=== PATIENT | female | born 1955 | race Caucasian/White ===

== ENCOUNTER → 2017-06-26 | Outpatient (CLI) | payer OTHER | LOC: FIMAGING 13:12 | PROVIDERS: ATTEND Family Medicine | DX: Z13.820 Encounter for screening for osteoporosis (principal); M81.0 Age-related osteoporosis without current pathological fracture | CPT/HCPCS: G0202 ==

== ENCOUNTER 2018-10-01 16:09 | Observation (INO) | payer OTHER ==
[2018-10-01] MEDS ORDERED: NS 1,000 ML IV ONE ×2 (16:50→19:09)
--- NOTE | 2018-10-01 16:52 | EDPHY ---
H & P Stated Complaint: LOWER L ABD PAIN/FEVER WITH HX DIVERTICULITIS Source: Patient, RN/MD Exam Limitations: No limitations - Personal History Current Tetanus Diphtheria and Acellular Pertussis (TDAP): Yes - Medical/Surgical History Hx Asthma: No Hx Chronic Respiratory Disease: No Hx Diabetes: No Hx Cardiac Disease: No Hx Renal Disease: No Hx Cirrhosis: No Hx Alcoholism: No Hx HIV/AIDS: No Hx Splenectomy or Spleen Trauma: No Other PMH: Hysterectomy, depression, rheumatoid arthritis, foot surgery, cholesterol DIVERTICULITIS - Social History Smoking Status: Never smoked Time Seen by Provider: 10/01/18 16:15 HPI/ROS: HPI: This is a 62-year-old female who presents with Chief Complaint: LOWER L ABD PAIN/FEVER WITH HX DIVERTICULITIS Location: Left lower quadrant Quality: Pain Duration: 1 week Signs and Symptoms: no fever, no nausea, no vomiting, no hematemesis, no blood in stool, no abdominal bloating, no diarrhea, no back pain, no urinary symptoms , no vaginal bleeding/discharge, no indigestion, no chest pain, no shortness of breath Timing: Acute, worsening Severity: Moderate to severe Context: Patient has a history of diverticulitis, last colonoscopy 5-10 years ago, presents with left lower quadrant pain that has been waxing waning over the last week. She finally had a bowel movement x3 yesterday. Yesterday evening the pain in left lower quadrant was so severe that it woke her up in the middle the night. She describes as severe, constant, nonradiating in nature. This afternoon she has developed some discomfort in the right lower quadrant as well. She reports decreased appetite. Denies fever, nausea, vomiting, diarrhea, urinary symptoms. Patient is postmenopausal. Patient called primary care provider who urged her to go to the emergency room to obtain CT imaging. Patient reports her pain to be 2/10 currently when she is lying still. Modifying Factors: Diverticular diet Comment: ROS: A comprehensive 10 system review of systems is otherwise negative aside from elements mentioned in the history of present illness. MEDICAL/SURGICAL/SOCIAL HISTORY: Medical/Surgical history: Hysterectomy, depression, rheumatoid arthritis, foot surgery, cholesterol, DIVERTICULITIS Social history: Never smoked. . Family history noncontributory. CONSTITUTIONAL: Nontoxic-appearing, polite and cooperative, elderly white female who appears younger than stated age, awake and alert, no obvious distress HEENT: Atraumatic and normocephalic, PERRL, EOMI. Nares patent; no rhinorrhea; no nasal mucosal edema. Tympanic membranes clear. Oropharynx clear, no exudate and moist pink mucosa. Airway patent. No lymphadenopathy. No meningismus. Cardiovascular: Normal S1/S2, regular rate, regular rhythm, without murmur rub or gallop. PULMONARY/CHEST: Symmetrical and nontender. Clear to auscultation bilaterally. Good air movement. No accessory muscle usage. ABDOMEN: Soft, nondistended, moderate left lower quadrant tenderness, mild right lower quadrant tenderness, no rebound, + guarding, no peritoneal signs, no masses or organomegaly. No CVAT. Bowel sounds hypoactive x4. EXTREMITIES: 2/2 pulses, strength 5/5, no deformities, no clubbing, no cyanosis or edema. NEUROLOGICAL: no focal neuro deficits. GCS 15. SKIN: Warm and dry, no erythema. no rash. Good capillary refill. (Maria Luisa Pickett) Constitutional: Initial Vital Signs Temperature (C) 37.5 C 10/01/18 16:24 Heart Rate 86 10/01/18 16:24 Respiratory Rate 18 10/01/18 16:24 Blood Pressure 125/79 H 10/01/18 16:24 O2 Sat (%) 95 10/01/18 16:24 O2 Delivery Mode Room Air Allergies/Adverse Reactions: codeine Allergy (Verified 10/01/18 19:18) morphine Allergy (Verified 10/01/18 19:18) Morpholine Analogues Allergy (Verified 10/01/18 19:18) penicillin V potassium [From Pen-Vee K] Allergy (Verified 10/01/18 16:22) PEN Allergy (Uncoded 03/15/14 01:14) Home Medications: Medication Instructions Recorded Avorastatin 12/25/13 Celexa 12/25/13 Citalopram 10/01/18 Oxybutynin 10/01/18 Medical Decision Making - Diagnostics Imaging Results: Imaging Impressions Abdomen CT 10/01/18 16:50 Impression: 1. Moderate diverticulitis of the mid sigmoid colon left lower quadrant without peridiverticular abscess or free air. Consider sigmoidoscopy after treatment to confirm that there is no underlying mass. 2. Probable hemangioma right lobe liver between the anterior and posterior segments. Consider follow-up ultrasound in 6 months to confirm stability and benign features. 3. Mildly prominent fluid-filled small bowel in the left lower abdomen adjacent to the diverticulitis that probably represents reactive ileus. Findings discussed with Maria Luisa Pickett PAC at 18:06 hour, 10/01/2018. ED Course/Re-evaluation: Vital signs reviewed and stable upon arrival. IV access, laboratory studies, urinalysis, CT abdomen and pelvis scan ordered Given 1 L normal saline. Patient has politely declined any antiemetics or pain medications at this time. 1733: Labs reviewed. WBC 10 K with left shift, sodium 134, creatinine 0.7. No signs of anemia/platelet dysfunction/KAYDEN/elevated LFTs/electrolyte imbalance/ pancreatitis. 1830: Called by radiologist that CT abdomen pelvis scan shows sigmoid diverticulitis with no abscess but does show LS and small as well as hemangioma in the right lower lobe that needs repeat ultrasound. Patient has an allergy to penicillin and does not want to take fluoroquinolone as a family member had severe tendinopathy as a reaction ED decision to consult attending who advises to give IV Invanz and to admit patient for further care. IV fentanyl 50 mcg and IV Zofran given as well. ED decision to consult hospitalist for admission. Spoke with hospitalist, Dr. Poole, who kindly agrees to admit patient and provide further care for diverticulitis, ileus, need for bowel rest and IV fluids This patient was seen under the supervision of my secondary supervising physician. I evaluated care for this patient with attending. Discussed this patient with Dr. Leon who did see the patient. (Maria Luisa Pickett) I did not see this patient while she was in the emergency department. However her care was discussed with the PA while the patient was in the department. I agree with treatment plan and management (Rickey Leon) Differential Diagnosis: Abdominal pain including but not limited to appendicitis, cholecystitis, gastritis and urinary tract infection. (Maria Luisa Pickett) - Data Points Laboratory Results: Laboratory Results 10/01/18 16:55 10/01/18 16:55 10/01/18 10/01/18 16:55 16:55 WBC 9.89 10^3/uL H 10^3/uL (3.80-9.50) RBC 4.20 10^6/uL 10^6/uL (4.18-5.33) Hgb 13.1 g/dL g/dL (12.6-16.3) Hct 39.4 % % (38.0-47.0) MCV 93.8 fL fL (81.5-99.8) MCH 31.2 pg pg (27.9-34.1) MCHC 33.2 g/dL g/dL (32.4-36.7) RDW 13.0 % % (11.5-15.2) Plt Count 256 10^3/uL 10^3/uL (150-400) MPV 10.0 fL fL (8.7-11.7) Neut % (Auto) 80.5 % H % (39.3-74.2) Lymph % (Auto) 11.1 % L % (15.0-45.0) [place] % (Auto) 7.5 % % (4.5-13.0) Eos % (Auto) 0.2 % L % (0.6-7.6) Baso % (Auto) 0.3 % % (0.3-1.7) Nucleat RBC Rel Count 0.0 % % (0.0-0.2) Absolute Neuts (auto) 7.96 10^3/uL H 10^3/uL (1.70-6.50) Absolute Lymphs (auto) 1.10 10^3/uL 10^3/uL (1.00-3.00) Absolute Monos (auto) 0.74 10^3/uL 10^3/uL (0.30-0.80) Absolute Eos (auto) 0.02 10^3/uL L 10^3/uL (0.03-0.40) Absolute Basos (auto) 0.03 10^3/uL 10^3/uL (0.02-0.10) Absolute Nucleated RBC 0.00 10^3/uL 10^3/uL (0-0.01) Immature Gran % 0.4 % % (0.0-1.1) Immature Gran # 0.04 10^3/uL 10^3/uL (0.00-0.10) Sodium 134 mEq/L L mEq/L (135-145) Potassium 3.6 mEq/L mEq/L (3.5-5.2) Chloride 107 mEq/L mEq/L (97-110) Carbon Dioxide 23 mEq/l mEq/l (22-31) Anion Gap 4 mEq/L L mEq/L (6-14) BUN 8 mg/dL mg/dL (7-23) Creatinine 0.7 mg/dL mg/dL (0.6-1.0) Estimated GFR > 60 Glucose 111 mg/dL H mg/dL (70-100) Calcium 9.7 mg/dL mg/dL (8.5-10.4) Total Bilirubin 0.7 mg/dL mg/dL (0.1-1.4) Conjugated Bilirubin 0.2 mg/dL mg/dL (0.0-0.5) Unconjugated Bilirubin 0.5 mg/dL mg/dL (0.0-1.1) AST 18 IU/L IU/L (14-46) ALT 24 IU/L IU/L (9-52) Alkaline Phosphatase 73 IU/L IU/L (38-126) Total Protein 6.8 g/dL g/dL (6.3-8.2) Albumin 4.0 g/dL g/dL (3.5-5.0) Lipase 37 IU/L IU/L (23-300) Medications Given: Discontinued Medications Fentanyl (Sublimaze) 50 mcg IVP EDNOW ONE Stop: 10/01/18 19:21 Last Admin: 10/01/18 19:23 Dose: 50 mcg Sodium Chloride (Ns) 1,000 mls @ 0 mls/hr IV EDNOW ONE; Wide Open PRN Reason: Protocol Stop: 10/01/18 16:51 Last Admin: 10/01/18 17:10 Dose: 1,000 mls Ertapenem 1 gm/ Sodium (Chloride) 100 mls @ 200 mls/hr IV EDNOW ONE PRN Reason: Protocol Stop: 10/01/18 19:00 Last Admin: 10/01/18 18:55 Dose: 100 mls Sodium Chloride (Ns) 1,000 mls @ 0 mls/hr IV EDNOW ONE; Wide Open PRN Reason: Protocol Stop: 10/01/18 19:10 Last Admin: 10/01/18 19:17 Dose: 1,000 mls Morphine Sulfate (Morphine) 2 mg IVP EDNOW ONE Stop: 10/01/18 19:10 Last Admin: 10/01/18 19:24 Dose: Not Given Ondansetron HCl (Zofran) 4 mg IVP EDNOW ONE Stop: 10/01/18 19:10 Last Admin: 10/01/18 19:21 Dose: 4 mg Departure - Departure Disposition: [facility] Acute Clinical Impression: Diverticulitis of sigmoid colon, Ileus Condition: Fair
[2018-10-01 17:14] LABS: PLATELET COUNT 256 10^3/uL (150-400)
[2018-10-01] MEDS ORDERED: IOPAMIDOL (ISOVUE 370) 100 ML BTL IV ONE (17:30)
[2018-10-01] MEDS ORDERED: ERTAPENEM 1 GM in NS 100 ML IV ONE (18:31)
[2018-10-01] MEDS ORDERED: ONDANSETRON 4 MG/2 ML VIAL IVP ONE (19:09)
[2018-10-01] MEDS ORDERED: fentaNYL 100 MCG/2 ML INJ IVP ONE (19:20)
[2018-10-01] MEDS ORDERED: fentaNYL 100 MCG/2 ML INJ ONE (19:21)
[2018-10-01] MEDS: NS 1,000 ML IV SCH (21:20)
[2018-10-01] MEDS ORDERED: ONDANSETRON 4 MG/2 ML VIAL IVP PRN (21:52)
[2018-10-01] MEDS ORDERED: LORazepam 0.5 MG TAB PO PRN (21:52)
[2018-10-01] MEDS ORDERED: ACETAMINOPHEN 325 MG TAB PO PRN (21:52)
[2018-10-01] MEDS ORDERED: ONDANSETRON DISINTEGRATING 4 MG TAB PO PRN (21:52)
[2018-10-01] MEDS ORDERED: fentaNYL 100 MCG/2 ML INJ IVP PRN (22:35)
--- NOTE | 2018-10-01 23:19 | GHP ---
DATE OF ADMISSION: 10/01/2018 SOURCE: The patient provides history, appears reliable. EMR was reviewed and case discussed with [facility] hospitalist. CHIEF COMPLAINT: Left lower quadrant abdominal pain. HISTORY OF PRESENT ILLNESS: This is a very pleasant 62-year-old female with past medical history sig nificant for diverticulitis, depression, rheumatoid arthritis, hyperlipidemia, who presents to the em ergency department today with complaints of 1-week history of left lower quadrant abdominal pain. Th e patient reports increasing cramping. Pain increased in severity and woke her up from sleep. The p atsally has been experiencing symptoms for approximately a week. However, she has had diverticulitis in the past and usually tries to self-treat with dietary changes. Yesterday, the patient reports sia t she had 3 bowel movements after having been constipated for several days. She denies any melena or hematochezia. She is taking a [id number] supplement which she reports changes her bowels to g reen, but she denies any tarry black stools. The patient usually will try to self-treat for as long as she is afebrile. However, today at work she measured a temperature of 100.3. She has had decreas ed appetite. No nausea, vomiting. No fatigue. Hemangioma incidentally noted on patient's CT scan of the abdomen with recommendations for 6-month fo llowup, which will be discussed with the patient. REVIEW OF SYSTEMS: Ten systems reviewed, negative except as noted above. ALLERGIES: Codeine, morphine, and penicillin, which the patient reports she developed a rash in chil dhood on her feet, but no anaphylaxis. The patient declined to have a fluoroquinolone for her divert iculitis, as she has a sister who has had tendinopathy complications from them. HOME MEDICATIONS: Vitamin E, omega-3 fish oil, vitamin D3, multivitamin, turmeric, coQ10, biotin, ga rlic, glucosamine, aspirin 81 mg p.o. daily, oxybutynin 50 mg p.o. daily, Celexa, atorvastatin. PAST MEDICAL HISTORY: Significant for depression, rheumatoid arthritis, hyperlipidemia, overactive b ladder, history of diverticulitis remotely several years ago. PAST SURGICAL HISTORY: Significant for hysterectomy, bilateral bunionectomy, colonoscopy 5-10 years ago, which she reports was normal. FAMILY HISTORY: Sister with diverticulitis. SOCIAL HISTORY: The patient reports that she drinks 1-2 glasses or more of wine daily. No tobacco o r illicit drugs. No marijuana. She is and lives with her . She is a psychologist an d employed. CODE STATUS: Full. PHYSICAL EXAMINATION: VITAL SIGNS: Upon arrival to the ED, blood pressure is 125/79, heart rate is 86, respiratory rate 18, O2 saturation 95% on room air, temperature 37.5. Current vitals: Blood pre ssure is 103/63, heart rate 70, respiratory rate 16, O2 saturation 94% on room air with temperature 3 6.8. GENERAL: No acute distress. Very pleasant, thin adult female who is sitting up in bed. Her h usband is at bedside. HEAD: Normocephalic and atraumatic. EYES: Extraocular muscles are grossly i ntact. Pupils equal, round, and reactive to light bilaterally and symmetric. No scleral icterus or conjunctival injection. The patient has glasses in place. ENT: Mucous membranes appear moist. No oropharyngeal erythema or exudates. Dentition intact. NECK: Supple. Trachea midline. CV: Regula r rate and rhythm. No murmurs, rubs, or gallops appreciated. No chest wall tenderness to palpation. RESPIRATORY: Lungs are clear to auscultation bilaterally. No wheezes, rales, or rhonchi appreciat ed. ABDOMEN: Hypoactive bowel sounds. The patient with some minimal tenderness to the left lower q uadrant, but no rebound, guarding, or masses appreciated. Soft to palpation. : No suprapubic ten derness to palpation. No Barbosa catheter in place. EXTREMITIES: No cyanosis, clubbing, or edema. P atient with 2+ pedal pulses bilaterally and symmetric. MUSCULOSKELETAL: Strength grossly normal. T he patient is able to sit up independently. Moves all extremities while lying in bed. NEURO: Gross ly nonfocal. Moves extremities as noted above. PSYCH: The patient is pleasant and cooperative. Th ought process, content, and questions are all appropriate. The patient is pleasant and cooperative. LABORATORY STUDIES: WBC 9.89, H and H are 13.1 and 39.4, MCV of 93.8, platelet count is 256, neutrop hil percent is 80.5. Sodium is 134, potassium 3.4, chloride 107, CO2 is 23, anion gap of 4, BUN 8, c reatinine 0.7. GFR greater than 60, glucose 111, calcium 9.7, total bilirubin 0.7, ALT is 24, AST is 18, alkaline phosphatase 73, total protein 6.8, albumin 4.0, lipase 37. CT abdomen and pelvis: Moderate diverticulitis of the mid sigmoid colon, left lower quadrant without peridiverticular abscess or free air. Consider sigmoidoscopy after treatment to confirm there is no underlying mass. Probable hemangioma right lobe of the liver between anterior and posterior segment s. Consider followup ultrasound in 6 months to confirm stability and benign features. Mildly promin ent fluid-filled small bowel in the left lower abdomen adjacent to the diverticulitis that probably r epresents a reactive ileus. ASSESSMENT AND PLAN: A very pleasant 62-year-old female with a history of rheumatoid arthritis, depr ession, hyperlipidemia, overactive bladder and diverticulitis, who presents to the emergency [facility] today with 1-week history of left lower quadrant abdominal pain. 1. Diverticulitis in the sigmoid colon. The patient has not had a colonoscopy or sigmoidoscopy in 5 -10 years. She reports that this was previously noted to be negative. She has had an episode of div erticulitis previously. The patient has been started on Invanz due to decline for fluoroquinolones i n the setting of a family history with tendinopathy after Levaquin. The patient will continue on ert apenem and consider transition to oral medications tomorrow if the patient's symptoms are significant ly improved and she is tolerating a full diet. 2. Abdominal pain. The patient currently reports that she is a lot more comfortable and not in need of any medications. She did receive some fentanyl in the emergency department. She has a listed al marin for codeine and morphine. Will leave Tylenol and p.r.n. fentanyl available with the patient on pulse oximetry if she continues to receive IV medications. 3. Chronic medical issues. 4. Depression. Resume citalopram. 5. Rheumatoid arthritis. The patient reports that she manages with glucosamine. She has not been o n methotrexate in some time. 6. Hyperlipidemia. Resume atorvastatin at discharge. 7. Fluid, electrolyte, and nutrition. IV fluids overnight for additional hydration. The patient do es have a minimal decline in her sodium, likely due to hypovolemia. Electrolyte monitoring and repla cement if needed, and patient will be started on clears. She does report that she is passing flatus, has not had a bowel movement today, but had 3 yesterday. If the patient is able to tolerate without additional symptoms in the setting of a reactive ileus in the small bowel, then will plan to advance her diet to regular in the morning and assess for potential discharge home. 8. Prophylaxis. Sequential compression devices. Lovenox if patient should stay additional day. Ot herwise, encourage mobilization. 9. Code status is full. DISPOSITION: Patient admitted to observation status on the Med/Surg floor, as her symptoms appear to be improving. We will advance diet and see how she tolerates and transition to oral antibiotics as noted above. /[id number]/MODL
[2018-10-02] MEDS: NS 1,000 ML IV SCH (04:45)
[2018-10-02 04:56] LABS: PLATELET COUNT 201 10^3/uL (150-400)
[2018-10-02 08:50] VITALS: BP 93/58
[2018-10-02] MEDS ORDERED: ENOXAPARIN 40 MG/0.4 ML SYR SC SCH (09:00)
--- NOTE | 2018-10-02 11:01 | ASMTLACE ---
LACE Length of stay for Answers: Less than 1 day current admission Acuity / Level of Answers: Yes Care: Did the patient have an inpatient admission? Comorbidities - select Answers: Other Notes: Diverticulitis; HLD all that apply # of Emergency department Answers: 1-2 visits in the last 6 months Social determinants Answers: Mental health diagnosis (anxiety, depression, pers onality disorders, etc.) Score: 8 Date Signed: 10/02/2018 11:01 AM Electronically Signed By:Chayo Gibson RN
--- NOTE | 2018-10-02 11:03 | ASMTDCNOTE ---
Case Management Discharge Discharge Order Complete? Answers: Yes Transportation Arranged Answers: Other Family Notified Answers: Yes Discharge Comments Notes: Patient admitted via ED under obs. Medically clear for dc to home. No needs. Date Signed: 10/02/2018 11:02 AM Electronically Signed By:Chayo Gibson RN
[2018-10-02] MEDS ORDERED: ERTAPENEM 1 GM in NS 100 ML IV SCH (18:00)
--- NOTE | 2018-10-02 19:27 | PDDCSUM ---
Discharge Summary Discharge Summary: Date of Admission: 10/01/2018 Date of Discharge: 10/02/2018 Discharge Diagnoses: Acute uncomplicated diverticulitis, recurrent Ileus, resolved Probable hemangioma of liver Constipation Admission Diagnoses: Diverticulitis of the sigmoid colon Abdominal pain Chronic medical issues Depression Rheumatoid arthritis Hyperlipidemia Dehydration Hyponatremia Consultants: None. Hospital Course: The patient is a 62-year-old female who presented with 1 week increasingly worsening left lower quadrant abdominal pain. She was found to have acute uncomplicated diverticulitis on CT scan. She admitted that she recently had constipation She was admitted for observation received IV fluids, IV Invanz, and fluids. She greatly improved overnight and was passing gas and tolerating clear liquids the next day. She was discharged home with prescriptions for antibiotics. She was recommended to consider getting elective colon surgery for recurrent diverticulitis. She was also given a flu shot before she went home. Physical Exam: General: The patient is a female who is alert and in no acute distress. HEENT: normocephalic, extraocular movements intact, conjunctivae clear, no lesions on face. Mucous membranes moist. Neck: trachea midline, no visible masses, no external lesions. Abd: soft and nondistended. Musculoskeletal: Normal muscle tone and bulk. Neuro: cranial nerves II - XII grossly intact. Intact gross motor and sensory function. Psych: appropriate mood/affect. Skin: No pallor. Heme/lymph: No peripheral edema. Condition: Stable. Discharged to: Home. Pertinent tests/labs/imaging: CT abdomen/pelvis with contrast: 1. Moderate diverticulitis of the mid sigmoid colon left lower quadrant without peridiverticular abscess or free air. Consider sigmoidoscopy after treatment to confirm that there is no underlying mass. 2. Probable hemangioma right lobe liver between the anterior and posterior segments. Consider follow-up ultrasound in 6 months to confirm stability and benign features. 3. Mildly prominent fluid-filled small bowel in the left lower abdomen adjacent to the diverticulitis that probably represents reactive ileus. Medications: Please see med rec form. New medications: Metronidazole 500 mg orally 3 times a day for 6 days. Bactrim DS orally twice a day for 6 days. Special instructions: For constipation: Try stool softeners and laxatives. Start with one and if there is no result, add a 2nd agent. Sodium docusate (Colace), senna, Miralax, Milk of Magnesia, Dulcolax, glycerin suppositories, or tap water/soap pj enemas. Drink plenty of water. Return to ED if symptoms worsen. Acetaminophen as needed for pain. Try applying a hot water bottle or heating pad to abdomen to help relieve pain/cramping. Follow up: PCP Dr. Janay Solitario in 1 week to discuss recent hospitalization. General surgery-Dr. Antonina Acosta in 2 weeks or as needed.
== END 2018-10-02 12:34 | disposition home or self-care (01) ==
LOC: INTOOBSV 19:08 → F1N 20:35
PROVIDERS: ADMIT Internal Medicine; ATTEND Internal Medicine
DX: K57.32 Diverticulitis of large intestine without perforation or abscess without bleeding (principal); K56.7 Ileus, unspecified; E86.0 Dehydration; K59.00 Constipation, unspecified; K76.9 Liver disease, unspecified; F32.9 Major depressive disorder, single episode, unspecified; M06.9 Rheumatoid arthritis, unspecified; E78.5 Hyperlipidemia, unspecified; E87.1 Hypo-osmolality and hyponatremia; Z79.82 Long term (current) use of aspirin; Z90.710 Acquired absence of both cervix and uterus; Z88.0 Allergy status to penicillin; Z23 Encounter for immunization
CPT/HCPCS: 74177; 90471; 96361; 96365; 96375; 99285; G0378; G0008; J1335; J1650; J2270; J2405; J3010; Q9967

== ENCOUNTER → 2018-11-18 | Outpatient (CLI) | payer OTHER | LOC: FIMAGING 14:00 | PROVIDERS: ATTEND Family Medicine | DX: Z12.31 Encounter for screening mammogram for malignant neoplasm of breast (principal); M81.0 Age-related osteoporosis without current pathological fracture ==